=== PATIENT | male | born 1960 | race Caucasian/White ===

== ENCOUNTER 2020-02-16 00:15 | Inpatient (IN) | payer BC ==
[~2020-02-16] VITALS: Ht 170.2 cm; Wt 82.7 kg
[2020-02-16] VITALS (21 sets, daily range): BP systolic 105–155; BP diastolic 72–94
[~2020-02-16 00:15] MED LIST: METFORMIN500 MG PO; VICODIN 500 MG-1 TAB PO
--- NOTE | 2020-02-16 00:31 | NUR ---
PT PLACED ON BIPAP 20/10 100% SAO2 96% PRESENTED WITH DIAPHORESIS SAO2 OF 85% ON NONREBREATHER
[2020-02-16 01:06] LABS: ABG BASE EXCESS -4.3 mmol/L (-2.0-2.0); ARTERIAL BLOOD GAS PH 7.322 (7.35-7.45)
[2020-02-16 01:25] LABS: BASO % 0.4 % (0.0-1.0); EOS # 0.1 10*3/uL (0.0-0.4); HEMATOCRIT 41.5 % (42.0-52.0); LYMPH # 2.6 10*3/uL (1.3-4.4); LYMPH % 24.5 % (27.0-41.0); MEAN CELL VOLUME 86.5 fl (80.0-94.0); MEAN CORPUSCULAR HGB 27.7 pg (27.0-31.0); MEAN PLATELET VOLUME 9.9 fl (9.6-12.3); MONO # 0.6 10*3/uL (0.1-1.0); MONO % 5.6 % (3.0-9.0); NEUT # 7.3 10*3/uL (2.3-7.9); NEUT % 68.1 % (47.0-73.0); PLATELET COUNT AUTOMATED 322 10*3/uL (130-400); RED CELL DISTRI WIDTH 13.4 % (0-14.5); WHITE BLOOD COUNT 10.7 10*3/uL (4.8-10.8)
[2020-02-16 01:44] LABS: ALBUMIN 3.4 gm/dl (3.1-4.5); ALKALINE PHOSPHATASE 92 U/L (45-117); BUN 11 mg/dl (7-24); CHLORIDE 108 mmol/L (98-107); CREATININE 1.05 mg/dL (0.70-1.30); POTASSIUM 3.5 mmol/L (3.5-5.1); SGOT/AST 21 IU/L (3-35); SGPT/ALT 25 U/L (12-78); SODIUM 139 mmol/L (136-145); TOTAL PROTEIN 7.4 gm/dL (6.4-8.2)
[2020-02-16 01:52] LABS: TROPONIN I < 0.015 ng/ml (<0.045)
[2020-02-16 08:17] LABS: BASO % 0.2 % (0.0-1.0); HEMATOCRIT 41.4 % (42.0-52.0); LYMPH # 0.9 10*3/uL (1.3-4.4); LYMPH % 14.1 % (27.0-41.0); MEAN CELL VOLUME 86.4 fl (80.0-94.0); MEAN CORPUSCULAR HGB 26.9 pg (27.0-31.0); MEAN CORPUSCULAR HGB CONC 31.2 g/dl (33.0-37.0); MEAN PLATELET VOLUME 9.6 fl (9.6-12.3); MONO # 0.3 10*3/uL (0.1-1.0); MONO % 4.3 % (3.0-9.0); NEUT # 5.1 10*3/uL (2.3-7.9); NEUT % 80.9 % (47.0-73.0); PLATELET COUNT AUTOMATED 263 10*3/uL (130-400); RED BLOOD COUNT 4.79 10*6/uL (4.50-5.90); RED CELL DISTRI WIDTH 13.5 % (0-14.5); WHITE BLOOD COUNT 6.3 10*3/uL (4.8-10.8)
[2020-02-16 08:29] LABS: BUN 13 mg/dl (7-24); CHLORIDE 105 mmol/L (98-107); CREATININE 0.93 mg/dL (0.70-1.30); SODIUM 139 mmol/L (136-145)
[2020-02-16 08:32] LABS: CPK 203 U/L (39-308); LDH 193 U/L (87-241)
[2020-02-16 08:33] LABS: POTASSIUM 4.7 mmol/L (3.5-5.1)
[2020-02-16 08:40] LABS: ACT PARTIAL THROMBO TIME 27.1 SECONDS (20.0-32.1)
--- NOTE | 2020-02-16 09:04 | NUR ---
PATIENT ALERT, UPDATED ON ADMIT STATUS. CURRENTLY ON VENTI MASK SATTING 94%. RECEIVED LASIX AND ANTIBIOTIC. WAITING ON ICU BED.
--- NOTE | 2020-02-16 10:12 | NUR ---
REPORT GIVEN TO 4TH FLOOR ROOM 6 RN. PT TRANSFERRED TO UNIT BY BOW MAKER MACHINE TENDER.
[2020-02-16 10:35] LABS: ABG BASE EXCESS -0.5 mmol/L (-2.0-2.0); ARTERIAL BLOOD GAS PH 7.445 (7.35-7.45)
[2020-02-16 13:22] LABS: ABG BASE EXCESS 0.9 mmol/L (-2.0-2.0); ARTERIAL BLOOD GAS PH 7.437 (7.35-7.45)
--- NOTE | 2020-02-16 19:39 | NUR ---
1929: Report received from dinorah EDWARDS. Pt is AAOx4, on 45% venti mask saturating 92%. VSS. Left and right PIV noted, site is clean and intact. Pt YARBROUGH, no distress noted at this time.
[2020-02-17] VITALS (7 sets, daily range): BP systolic 103–120; BP diastolic 68–88
[2020-02-17 06:06] LABS: BASO % 0.3 % (0.0-1.0); EOS % 0.1 % (1.0-4.0); HEMATOCRIT 36.9 % (42.0-52.0); LYMPH # 1.7 10*3/uL (1.3-4.4); LYMPH % 23.4 % (27.0-41.0); MEAN CELL VOLUME 85.6 fl (80.0-94.0); MEAN CORPUSCULAR HGB 27.6 pg (27.0-31.0); MEAN CORPUSCULAR HGB CONC 32.2 g/dl (33.0-37.0); MEAN PLATELET VOLUME 9.2 fl (9.6-12.3); MONO # 0.5 10*3/uL (0.1-1.0); MONO % 6.7 % (3.0-9.0); NEUT % 69.1 % (47.0-73.0); PLATELET COUNT AUTOMATED 240 10*3/uL (130-400); RED BLOOD COUNT 4.31 10*6/uL (4.50-5.90); RED CELL DISTRI WIDTH 13.7 % (0-14.5); WHITE BLOOD COUNT 7.3 10*3/uL (4.8-10.8)
[2020-02-17 06:19] LABS: ALBUMIN 3.1 gm/dl (3.1-4.5); ALKALINE PHOSPHATASE 80 U/L (45-117); BUN 17 mg/dl (7-24); CHLORIDE 106 mmol/L (98-107); CREATININE 0.79 mg/dL (0.70-1.30); POTASSIUM 3.9 mmol/L (3.5-5.1); SGOT/AST 15 IU/L (3-35); SGPT/ALT 20 U/L (12-78); SODIUM 140 mmol/L (136-145); TOTAL PROTEIN 6.8 gm/dL (6.4-8.2)
--- NOTE | 2020-02-17 08:05 | NUR ---
PT NOT ON BIPAP AT THIS TIME. SPO2 92% VM 45%, HR99
--- NOTE | 2020-02-17 18:40 | NUR ---
Patient is A+Ox3 with no noted pain. He was weaned down from venturi mask (FiO2 45%) to 3L oxygen nasal cannula. Healthy appetite, consumes 100% of meals. Continue diuresis and monitor patient. Patient care endorsed to oncoming night nurse. GRACE Valle
--- NOTE | 2020-02-17 20:25 | NUR ---
1929: Report received from dinorah EDWARDS. Pt is ZENON Mustafa. Pt VSS, on 3LNC saturating 98%. Left and right arm PIV noted, site is clean and intact. No apparent distress noted at this time.
[2020-02-18 04:00] VITALS: BP 110/67
[2020-02-18 08:00] VITALS: BP 106/77
[2020-02-18 12:00] VITALS: BP 106/78
[2020-02-18 16:00] VITALS: BP 119/82
--- NOTE | 2020-02-18 16:17 | NUR ---
Nutritional Support Services Note: Appetite is good for meals, he is eating 100% of all meals served. He receives an 1800cal diet as ordered. He has lesions to forearm bilaterally. Will provide pt with a night snack. No other nutrition intervention needed at this time. Will follow if needed. Melissa Oropeza
[2020-02-18 20:00] VITALS: BP 113/78
[2020-02-18 20:01] LABS: BASO % 0.2 % (0.0-1.0); EOS % 0.2 % (1.0-4.0); HEMATOCRIT 42.3 % (42.0-52.0); LYMPH # 1.4 10*3/uL (1.3-4.4); LYMPH % 22.6 % (27.0-41.0); MEAN CELL VOLUME 85.3 fl (80.0-94.0); MEAN CORPUSCULAR HGB 27.6 pg (27.0-31.0); MEAN CORPUSCULAR HGB CONC 32.4 g/dl (33.0-37.0); MEAN PLATELET VOLUME 9.5 fl (9.6-12.3); MONO # 0.3 10*3/uL (0.1-1.0); MONO % 4.8 % (3.0-9.0); NEUT # 4.5 10*3/uL (2.3-7.9); NEUT % 71.9 % (47.0-73.0); PLATELET COUNT AUTOMATED 263 10*3/uL (130-400); RED BLOOD COUNT 4.96 10*6/uL (4.50-5.90); RED CELL DISTRI WIDTH 13.5 % (0-14.5); WHITE BLOOD COUNT 6.3 10*3/uL (4.8-10.8)
[2020-02-18 20:21] LABS: ALBUMIN 3.4 gm/dl (3.1-4.5); ALKALINE PHOSPHATASE 85 U/L (45-117); BUN 25 mg/dl (7-24); CHLORIDE 98 mmol/L (98-107); CREATININE 0.88 mg/dL (0.70-1.30); POTASSIUM 3.7 mmol/L (3.5-5.1); SGOT/AST 14 IU/L (3-35); SGPT/ALT 24 U/L (12-78); SODIUM 134 mmol/L (136-145); TOTAL PROTEIN 7.6 gm/dL (6.4-8.2)
[2020-02-19] VITALS: BP 108/77
[2020-02-19 04:00] VITALS: BP 103/75
[2020-02-19 06:28] LABS: BUN 23 mg/dl (7-24); CHLORIDE 100 mmol/L (98-107); CREATININE 0.71 mg/dL (0.70-1.30); POTASSIUM 3.3 mmol/L (3.5-5.1); SODIUM 138 mmol/L (136-145)
[2020-02-19 08:00] VITALS: BP 113/80
[2020-02-19] MEDS ORDERED: DOXYCYCLINE100 M3 PO (14:16)
[2020-02-19] MEDS ORDERED: K-TAB10 MEQ PO (15:44)
[2020-02-19] MEDS ORDERED: LASIX20 MG PO (15:44)
--- NOTE | 2020-02-19 16:32 | NUR ---
Discharge instructions reviewed with patient/family. Patient receptive and verbalizes understanding. Follow-up care arranged. Written instructions given to patient/family. TOMAS DAVIS
== END 2020-02-19 16:32 | disposition home or self-care (01) | DRG 291 ==
LOC: ED 00:15 → EDHOLD 08:37 → ICCU 08:37 → EDHOLD 09:08 → ICCU 09:24
PROVIDERS: Emergency Medicine; Internal Medicine; Internal Medicine Critical Care Medicine; Student in an Organized Health Care Education/Training Program; ADMIT Emergency Medicine; ATTEND Emergency Medicine
PROC: 5A09357 Assistance with Respiratory Ventilation, Less than 24 Consecutive Hours, Continuous Positive Airway Pressure (ICD-10-PCS; principal; 2020-02-16)
DX: I50.1 Left ventricular failure, unspecified (principal); J96.01 Acute respiratory failure with hypoxia; R65.11 Systemic inflammatory response syndrome (SIRS) of non-infectious origin with acute organ dysfunction; E87.2 Acidosis; I47.1 Supraventricular tachycardia; Z20.828 Contact with and (suspected) exposure to other viral communicable diseases; E66.3 Overweight; D64.9 Anemia, unspecified; I48.91 Unspecified atrial fibrillation; I51.7 Cardiomegaly; E11.65 Type 2 diabetes mellitus with hyperglycemia; Z82.49 Family history of ischemic heart disease and other diseases of the circulatory system; Z80.8 Family history of malignant neoplasm of other organs or systems; Z87.891 Personal history of nicotine dependence; Z68.28 Body mass index [BMI] 28.0-28.9, adult

== ENCOUNTER 2020-05-23 09:57 | Inpatient (IN) | payer BC ==
[~2020-05-23] VITALS: Ht 170 cm; Wt 79.8 kg
[~2020-05-23 09:57] MED LIST changes: +DOXYCYCLINE100 M3 PO; +K-TAB10 MEQ PO; +LASIX20 MG PO
[2020-05-23 10:04] VITALS: BP 152/103
[2020-05-23 11:15] VITALS: BP 156/89
[2020-05-23 11:43] LABS: BASO % 0.3 % (0.0-1.0); EOS % 0.6 % (1.0-4.0); HEMATOCRIT 33.9 % (42.0-52.0); LYMPH # 1.1 10*3/uL (1.3-4.4); LYMPH % 16.4 % (27.0-41.0); MEAN CELL VOLUME 84.8 fl (80.0-94.0); MEAN CORPUSCULAR HGB CONC 31.9 g/dl (33.0-37.0); MONO # 0.4 10*3/uL (0.1-1.0); MONO % 5.8 % (3.0-9.0); NEUT # 5.2 10*3/uL (2.3-7.9); NEUT % 76.6 % (47.0-73.0); PLATELET COUNT AUTOMATED 356 10*3/uL (130-400); RED CELL DISTRI WIDTH 14.9 % (0-14.5); WHITE BLOOD COUNT 6.8 10*3/uL (4.8-10.8)
[2020-05-23 12:01] LABS: ALBUMIN 3.2 gm/dl (3.1-4.5); ALKALINE PHOSPHATASE 102 U/L (45-117); BUN 11 mg/dl (7-24); CHLORIDE 104 mmol/L (98-107); CREATININE 0.89 mg/dL (0.70-1.30); POTASSIUM 4.5 mmol/L (3.5-5.1); SGOT/AST 12 IU/L (3-35); SGPT/ALT 25 U/L (12-78); SODIUM 136 mmol/L (136-145); TOTAL PROTEIN 7.5 gm/dL (6.4-8.2)
[2020-05-23 12:10] LABS: TROPONIN I 0.121 ng/ml (<0.045)
[2020-05-23 12:30] VITALS: BP 129/91
[2020-05-23 12:54] VITALS: BP 116/78
[2020-05-23 20:00] VITALS: BP 131/73
[2020-05-24] VITALS: BP 112/67
[2020-05-24 06:37] LABS: BASO % 0.5 % (0.0-1.0); EOS # 0.2 10*3/uL (0.0-0.4); EOS % 2.4 % (1.0-4.0); HEMATOCRIT 32.8 % (42.0-52.0); LYMPH # 1.5 10*3/uL (1.3-4.4); LYMPH % 24.9 % (27.0-41.0); MEAN CELL VOLUME 85.4 fl (80.0-94.0); MEAN CORPUSCULAR HGB 26.6 pg (27.0-31.0); MEAN CORPUSCULAR HGB CONC 31.1 g/dl (33.0-37.0); MEAN PLATELET VOLUME 9.1 fl (9.6-12.3); MONO # 0.5 10*3/uL (0.1-1.0); MONO % 8.1 % (3.0-9.0); NEUT # 3.9 10*3/uL (2.3-7.9); NEUT % 63.8 % (47.0-73.0); PLATELET COUNT AUTOMATED 346 10*3/uL (130-400); RED BLOOD COUNT 3.84 10*6/uL (4.50-5.90); WHITE BLOOD COUNT 6.2 10*3/uL (4.8-10.8)
[2020-05-24 07:13] LABS: ALBUMIN 2.8 gm/dl (3.1-4.5); ALKALINE PHOSPHATASE 91 U/L (45-117); BUN 14 mg/dl (7-24); CHLORIDE 104 mmol/L (98-107); CHOLESTEROL 171 mg/dL (<200); HDL CHOLESTEROL 42 mg/dl (40-60); LDL CHOLESTEROL 96 mg/dL (9-159); POTASSIUM 3.6 mmol/L (3.5-5.1); SGOT/AST 11 IU/L (3-35); SGPT/ALT 19 U/L (12-78); SODIUM 138 mmol/L (136-145); TOTAL PROTEIN 7.1 gm/dL (6.4-8.2); TRIGLYCERIDES 163 mg/dl (<150); VLDL CHOLESTEROL 33 mg/dL (6-40)
[2020-05-24 07:17] LABS: THYROID STIM HORMONE (HS) 0.871 uIU/ml (0.358-4.75)
[2020-05-24 08:00] VITALS: BP 113/75
[2020-05-24 08:21] LABS: VITAMIN D, 25-HYDROXY 39.2 ng/mL (30-100)
[2020-05-24 11:47] LABS: ACT PARTIAL THROMBO TIME 32.4 SECONDS (20.0-32.1); INTERNATIONAL NORM RATIO 1.1 (2.0-3.5)
[2020-05-24 12:00] VITALS: BP 111/68
[2020-05-24 16:00] VITALS: BP 134/94
[2020-05-24 20:00] VITALS: BP 113/74; BP 130/68
[2020-05-25] VITALS: BP 106/69
[2020-05-25 06:08] LABS: BASO % 0.4 % (0.0-1.0); EOS # 0.1 10*3/uL (0.0-0.4); EOS % 1.8 % (1.0-4.0); HEMATOCRIT 34.2 % (42.0-52.0); LYMPH # 1.5 10*3/uL (1.3-4.4); LYMPH % 20.4 % (27.0-41.0); MEAN CELL VOLUME 82.8 fl (80.0-94.0); MEAN CORPUSCULAR HGB 27.1 pg (27.0-31.0); MEAN CORPUSCULAR HGB CONC 32.7 g/dl (33.0-37.0); MEAN PLATELET VOLUME 9.1 fl (9.6-12.3); MONO # 0.5 10*3/uL (0.1-1.0); MONO % 7.5 % (3.0-9.0); NEUT % 69.6 % (47.0-73.0); PLATELET COUNT AUTOMATED 370 10*3/uL (130-400); RED BLOOD COUNT 4.13 10*6/uL (4.50-5.90); RED CELL DISTRI WIDTH 14.6 % (0-14.5); WHITE BLOOD COUNT 7.2 10*3/uL (4.8-10.8)
[2020-05-25 06:27] LABS: BUN 15 mg/dl (7-24); CHLORIDE 101 mmol/L (98-107); CREATININE 0.79 mg/dL (0.70-1.30); POTASSIUM 3.7 mmol/L (3.5-5.1); SODIUM 136 mmol/L (136-145)
[2020-05-25 08:00] VITALS: BP 125/71
[2020-05-25] MEDS ORDERED: ASPIRIN ADULT L81 M1 PO (11:30)
[2020-05-25] MEDS ORDERED: METFORMIN HYD1000 MG PO (11:30)
[2020-05-25] MEDS ORDERED: LISINOPRIL2.5 MG PO (11:30)
[2020-05-25] MEDS ORDERED: FUROSEMIDE40 MG PO (11:30)
[2020-05-25] MEDS ORDERED: METOPROLOL SUCC25 M2 PO (11:30)
[2020-05-25] MEDS ORDERED: ATORVASTATIN CA40 M1 PO (11:30)
[2020-05-25] MEDS ORDERED: KLOR-CON M2020 ME1 PO (11:47)
[2020-05-25 12:00] VITALS: BP 118/75
[2020-05-25 16:00] VITALS: BP 129/88
[2020-05-25 20:00] VITALS: BP 117/76
[2020-05-26] VITALS: BP 131/80
[2020-05-26 03:56] LABS: BASO % 0.3 % (0.0-1.0); EOS # 0.1 10*3/uL (0.0-0.4); EOS % 1.8 % (1.0-4.0); LYMPH # 1.7 10*3/uL (1.3-4.4); LYMPH % 24.5 % (27.0-41.0); MEAN CELL VOLUME 84.4 fl (80.0-94.0); MEAN CORPUSCULAR HGB 26.6 pg (27.0-31.0); MEAN CORPUSCULAR HGB CONC 31.5 g/dl (33.0-37.0); MEAN PLATELET VOLUME 8.7 fl (9.6-12.3); MONO # 0.6 10*3/uL (0.1-1.0); MONO % 8.2 % (3.0-9.0); NEUT # 4.4 10*3/uL (2.3-7.9); NEUT % 64.8 % (47.0-73.0); PLATELET COUNT AUTOMATED 326 10*3/uL (130-400); RED BLOOD COUNT 4.03 10*6/uL (4.50-5.90); RED CELL DISTRI WIDTH 14.9 % (0-14.5); WHITE BLOOD COUNT 6.8 10*3/uL (4.8-10.8)
[2020-05-26 04:14] LABS: BUN 14 mg/dl (7-24); CHLORIDE 101 mmol/L (98-107); CREATININE 0.69 mg/dL (0.70-1.30); POTASSIUM 3.6 mmol/L (3.5-5.1); SODIUM 135 mmol/L (136-145)
== END 2020-05-26 05:57 | disposition short-term general hospital (02) | DRG 280 ==
LOC: ED 09:57 → 5E 13:05 → EDHOLD 13:05 → 5E 17:02
PROVIDERS: Hospitalist; Internal Medicine; Registered Nurse; Student in an Organized Health Care Education/Training Program; ADMIT Family Medicine; ATTEND Family Medicine
DX: I21.4 Non-ST elevation (NSTEMI) myocardial infarction (principal); J96.01 Acute respiratory failure with hypoxia; R65.11 Systemic inflammatory response syndrome (SIRS) of non-infectious origin with acute organ dysfunction; E44.0 Moderate protein-calorie malnutrition; I34.0 Nonrheumatic mitral (valve) insufficiency; I50.9 Heart failure, unspecified; Z87.891 Personal history of nicotine dependence; E11.65 Type 2 diabetes mellitus with hyperglycemia; Z79.899 Other long term (current) drug therapy; Z68.29 Body mass index [BMI] 29.0-29.9, adult

== ENCOUNTER 2021-05-25 14:27 | Emergency (ER) | payer BC ==
[~2021-05-25 14:27] MED LIST changes: +ASPIRIN ADULT L81 M1 PO; +ATORVASTATIN CA40 M1 PO; +FUROSEMIDE40 MG PO; +KLOR-CON M2020 ME1 PO; +LISINOPRIL2.5 MG PO; +METFORMIN HYD1000 MG PO; +METOPROLOL SUCC25 M2 PO
== END 2021-05-25 15:14 | disposition left against medical advice (07) ==
LOC: ED 14:27
DX: R41.0 Disorientation, unspecified (principal); Z87.891 Personal history of nicotine dependence

== ENCOUNTER 2021-05-30 11:01 | Inpatient (IN) | payer BC ==
[~2021-05-30] VITALS: Ht 170.2 cm; Wt 73.9 kg
[2021-05-30 11:10] VITALS: BP 136/89
[2021-05-30 11:21] LABS: BASO % 0.3 % (0.0-1.0); EOS # 0.1 10*3/uL (0.0-0.4); EOS % 1.6 % (1.0-4.0); HEMATOCRIT 37.3 % (42.0-52.0); LYMPH # 1.5 10*3/uL (1.3-4.4); LYMPH % 39.4 % (27.0-41.0); MEAN CELL VOLUME 86.3 fl (80.0-94.0); MEAN CORPUSCULAR HGB 29.4 pg (27.0-31.0); MEAN PLATELET VOLUME 9.7 fl (9.6-12.3); MONO # 0.3 10*3/uL (0.1-1.0); MONO % 8.4 % (3.0-9.0); NEUT # 1.9 10*3/uL (2.3-7.9); PLATELET COUNT AUTOMATED 155 10*3/uL (130-400); RED BLOOD COUNT 4.32 10*6/uL (4.50-5.90); WHITE BLOOD COUNT 3.8 10*3/uL (4.8-10.8)
[2021-05-30 11:31] LABS: ACT PARTIAL THROMBO TIME 25.2 SECONDS (20.0-32.1)
[2021-05-30 11:37] LABS: ALKALINE PHOSPHATASE 74 U/L (45-117); BUN 12 mg/dl (7-24); CHLORIDE 102 mmol/L (98-107); CREATININE 0.93 mg/dL (0.70-1.30); POTASSIUM 4.6 mmol/L (3.5-5.1); SGOT/AST 14 IU/L (3-35); SGPT/ALT 28 U/L (12-78); SODIUM 135 mmol/L (136-145); TOTAL PROTEIN 6.7 gm/dL (6.4-8.2)
[2021-05-30 11:46] LABS: ETHYL ALCOHOL < 3.0 mg/dl (<3)
[2021-05-30 12:14] LABS: BILIRUBIN Negative (Negative); BLOOD Negative (Negative); CLARITY Clear (Clear); COLOR Yellow (Yellow); GLUCOSE 3+ (Negative); KETONE 1+ (Negative); LEUKO ESTERASE Negative (Negative); NITRITE Negative (Negative); PH 6.5 (4.5-8.0); SPECIFIC GRAVITY >= 1.030 (1.001-1.030); UROBILINOGEN 0.2 E.U./dl (0.0-1.0)
[2021-05-30 12:21] LABS: URINE AMPHETAMINES < 1000 (1000ng/ml); URINE BARBITURATES < 200 (200ng/ml); URINE BENZODIAZEPINES < 200 (200ng/ml); URINE CANNABINOIDS (THC) < 50 (50ng/ml); URINE COCAINE < 300 (300ng/ml); URINE METHADONE < 300 (300ng/ml); URINE OPIATES < 300 (300ng/ml); URINE PHENCYCLIDINE < 25 (25ng/ml)
[2021-05-30 12:44] LABS: RBC 0-2 rbc/hpf (0-2)
[2021-05-30 13:05] VITALS: BP 116/76
[2021-05-30 13:24] LABS: CHOLESTEROL 158 mg/dL (<200); LDL CHOLESTEROL 58 mg/dL (9-159); TRIGLYCERIDES 307 mg/dl (<150)
[2021-05-30 13:31] VITALS: BP 144/80
[2021-05-30] MEDS ORDERED: K-TAB20 MEQ PO (15:16)
[2021-05-30] MEDS ORDERED: LIPITOR20 MG PO (15:19)
[2021-05-30] MEDS ORDERED: ELIQUIS5 M1 PO (15:20)
[2021-05-30] MEDS ORDERED: PRENATAL TABLE1 EAC1 PO (15:21)
[2021-05-30 16:00] VITALS: BP 143/59
== END 2021-05-30 19:36 | disposition short-term general hospital (02) | DRG 66 ==
LOC: ED 11:01 → EDHOLD 12:05 → 5E 12:46
PROVIDERS: Emergency Medicine; ADMIT Internal Medicine; ATTEND Internal Medicine
DX: I63.9 Cerebral infarction, unspecified (principal); R56.9 Unspecified convulsions; E11.9 Type 2 diabetes mellitus without complications; Z87.891 Personal history of nicotine dependence; Z82.49 Family history of ischemic heart disease and other diseases of the circulatory system

== ENCOUNTER 2021-06-19 19:54 | Emergency (ER) | payer BC ==
[~2021-06-19] VITALS: Ht 170.1 cm; Wt 80.7 kg
[~2021-06-19 19:54] MED LIST changes: +ELIQUIS5 M1 PO; +K-TAB20 MEQ PO; +LIPITOR20 MG PO; +PRENATAL TABLE1 EAC1 PO
[2021-06-19 20:43] LABS: BASO % 0.3 % (0.0-1.0); EOS % 0.3 % (1.0-4.0); LYMPH # 0.9 10*3/uL (1.3-4.4); LYMPH % 14.5 % (27.0-41.0); MEAN CELL VOLUME 89.6 fl (80.0-94.0); MEAN CORPUSCULAR HGB 28.8 pg (27.0-31.0); MEAN CORPUSCULAR HGB CONC 32.2 g/dl (33.0-37.0); MEAN PLATELET VOLUME 8.7 fl (9.6-12.3); MONO # 0.4 10*3/uL (0.1-1.0); MONO % 6.7 % (3.0-9.0); NEUT # 4.6 10*3/uL (2.3-7.9); NEUT % 77.9 % (47.0-73.0); PLATELET COUNT AUTOMATED 197 10*3/uL (130-400); RED BLOOD COUNT 4.13 10*6/uL (4.50-5.90); RED CELL DISTRI WIDTH 13.5 % (0-14.5)
[2021-06-19 20:46] LABS: BILIRUBIN Negative (Negative); BLOOD Negative (Negative); CLARITY Clear (Clear); COLOR Yellow (Yellow); GLUCOSE Negative (Negative); KETONE Negative (Negative); LEUKO ESTERASE Negative (Negative); NITRITE Negative (Negative); UROBILINOGEN 0.2 E.U./dl (0.0-1.0)
[2021-06-19 20:58] LABS: ALKALINE PHOSPHATASE 81 U/L (45-117); BUN 6 mg/dl (7-24); CHLORIDE 106 mmol/L (98-107); CREATININE 0.69 mg/dL (0.70-1.30); POTASSIUM 4.4 mmol/L (3.5-5.1); SGOT/AST 22 IU/L (3-35); SGPT/ALT 34 U/L (12-78); SODIUM 140 mmol/L (136-145); TOTAL PROTEIN 7.1 gm/dL (6.4-8.2)
[2021-06-19 21:02] LABS: BACTERIA TRACE
== END 2021-06-19 22:25 | disposition home or self-care (01) ==
LOC: ED 19:54
PROVIDERS: Physician Assistant
DX: R33.9 Retention of urine, unspecified (principal); Z87.891 Personal history of nicotine dependence